=== PATIENT | female | born 1990 | race Caucasian/White ===

== ENCOUNTER 2017-07-07 12:37 | Emergency (ER) | payer MEDICAID ==
[~2017-07-07] VITALS: Ht 157.5 cm; Wt 63.0 kg
[2017-07-07] MEDS ORDERED: BACITRACIN ZINC OINT UDPKT TOP ONE (14:30)
[2017-07-07] MEDS ORDERED: TETANUS, DIPHTHERIA, PERTUSSIS VAC/PF 0.5ML (>7YR OLD) IM ONE (14:30)
[2017-07-07] MEDS ORDERED: IBUPROFEN 600MG TABLET PO ONE (14:30)
[2017-07-07] MEDS ORDERED: LIDOCAINE HCL 1% 20ML VIAL (Pyxis) INJ MC ONE (14:30)
[2017-07-07 14:34] VITALS: BP 123/87
== END 2017-07-07 16:11 | disposition home or self-care (01) ==
LOC: ER 13:01
DX: S71.132A Puncture wound without foreign body, left thigh, initial encounter (principal); W26.0XXA Contact with knife, initial encounter; Y93.89 Activity, other specified; Y92.89 Other specified places as the place of occurrence of the external cause; Z23 Encounter for immunization
CPT/HCPCS: 12001; 73552; 90471; 90715; 99284; J3490; Z7610

== ENCOUNTER 2018-03-09 17:16 | Emergency (ER) | payer MEDICAID ==
[~2018-03-09] VITALS: Ht 157.5 cm; Wt 69.0 kg
[2018-03-09] MEDS ORDERED: SODIUM CHLORIDE 0.9% 1,000 ML IV ONE ×2 (20:01→21:55)
[2018-03-09] MEDS ORDERED: ONDANSETRON HCL 4MG/2ML INJ IV ONE (20:15)
[2018-03-09] MEDS ORDERED: ACETAMINOPHEN 325MG TABLET PO PRN (20:15)
[2018-03-09 20:32] LABS: BASOPHILS % 0.6 % (0.0-2.0); HEMATOCRIT. 39.6 % (36.0-48.0); HEMOGLOBIN. 13.5 g/dL (12.0-16.0); MEAN CORPUSCULAR HEMOGLOBIN 30.2 pg (28.0-32.0); MEAN CORPUSCULAR VOLUME 88.6 fL (81.0-99.0); MEAN PLATELET VOLUME 9.4 fl (7.4-10.4); MONOCYTES % 12.6 % (2.0-8.0); NEUTROPHILS % 55.8 % (40.0-76.0); PLATELET 231 x1000/uL (130-400); RED BLOOD CELL COUNT 4.47 mill/uL (4.2-5.4); RED CELL DISTRIBUTION WIDTH 12.6 % (11.6-14.6)
[2018-03-09 20:34] LABS: CHLORIDE 105 mEq/L (98-107)
[2018-03-09 20:57] LABS: B-HCG QUANTITATIVE 69658 mIU/mL (<3)
[2018-03-09 21:15] LABS: CLARITY URINE CLOUDY (CLEAR); COLOR URINE YELLOW (YELLOW); KETONES URINE NEGATIVE (NEGATIVE); LEUKOCYTE ESTERASE URINE TRACE (NEGATIVE); NITRITE URINE NEGATIVE (NEGATIVE); OCCULT BLOOD URINE NEGATIVE (NEGATIVE); PROTEIN URINE NEGATIVE (NEGATIVE); SPECIFIC GRAVITY URINE 1.021 (1.005-1.030)
[2018-03-09 23:08] VITALS: BP 102/68
== END 2018-03-09 23:11 | disposition home or self-care (01) ==
LOC: ER 17:16
DX: O23.41 Unspecified infection of urinary tract in pregnancy, first trimester (principal); O26.891 Other specified pregnancy related conditions, first trimester; R42 Dizziness and giddiness; R53.1 Weakness; Z3A.01 Less than 8 weeks gestation of pregnancy
CPT/HCPCS: 36415; 76801; 76817; 80053; 81003; 81025; 84702; 85025; 96361; 96374; 99285; J2405; J7030; Z7610

== ENCOUNTER 2018-10-10 10:54 | Observation (INO) | payer MEDICAID ==
[2018-10-10] MEDS ORDERED: PNV1TABL50 MT (15:16)
== END 2018-10-10 15:25 | disposition home or self-care (01) ==
LOC: UNDOADMOB 10:54 → 8 EST LDRP 10:54
PROVIDERS: ADMIT Specialist; ATTEND Specialist
DX: O26.893 Other specified pregnancy related conditions, third trimester (principal); R10.11 Right upper quadrant pain; M54.9 Dorsalgia, unspecified; Z87.19 Personal history of other diseases of the digestive system; Z3A.37 37 weeks gestation of pregnancy
CPT/HCPCS: 76705; 76805; 76818; 99281; G0378

== ENCOUNTER 2018-10-10 15:45 | Emergency (ER) | payer MEDICAID ==
[~2018-10-10 15:45] MED LIST: PNV1TABL50 MT
== END 2018-10-10 17:09 | disposition left against medical advice (07) ==
LOC: ER 15:45
DX: K80.00 Calculus of gallbladder with acute cholecystitis without obstruction (principal); Z53.21 Procedure and treatment not carried out due to patient leaving prior to being seen by health care provider

== ENCOUNTER 2018-10-10 20:22 | Observation (INO) | payer MEDICAID ==
[~2018-10-10] VITALS: Ht 154.9 cm; Wt 82.6 kg
== END 2018-10-10 21:45 | disposition home or self-care (01) ==
LOC: 8 EST LDRP 20:22
PROVIDERS: ADMIT Specialist; ATTEND Specialist
DX: O26.893 Other specified pregnancy related conditions, third trimester (principal); R10.11 Right upper quadrant pain; M54.9 Dorsalgia, unspecified; Z87.19 Personal history of other diseases of the digestive system; Z3A.37 37 weeks gestation of pregnancy
CPT/HCPCS: G0378

== ENCOUNTER 2018-10-10 21:55 | Emergency (ER) | payer MEDICAID | END 2018-10-10 23:28 | disposition left against medical advice (07) | LOC: ER 21:55 | DX: M54.9 Dorsalgia, unspecified (principal); Z53.21 Procedure and treatment not carried out due to patient leaving prior to being seen by health care provider ==

== ENCOUNTER 2018-10-12 00:52 | Observation (INO) | payer MEDICAID | END 2018-10-12 02:20 | disposition home or self-care (01) | LOC: 8 EST LDRP 00:52 | PROVIDERS: ADMIT Specialist; ATTEND Specialist | DX: O62.9 Abnormality of forces of labor, unspecified (principal); Z3A.37 37 weeks gestation of pregnancy | CPT/HCPCS: 99281; G0378 ==

== ENCOUNTER 2019-08-02 11:19 | Emergency (ER) | payer MEDICAID ==
[~2019-08-02] VITALS: Ht 157.5 cm; Wt 64.0 kg
[2019-08-02 12:38] LABS: CLARITY URINE CLOUDY (CLEAR); COLOR URINE YELLOW (YELLOW); KETONES URINE NEGATIVE (NEGATIVE); LEUKOCYTE ESTERASE URINE NEGATIVE (NEGATIVE); NITRITE URINE NEGATIVE (NEGATIVE); OCCULT BLOOD URINE NEGATIVE (NEGATIVE); PROTEIN URINE NEGATIVE (NEGATIVE); SPECIFIC GRAVITY URINE 1.025 (1.005-1.030)
[2019-08-02 14:07] LABS: BASOPHILS % 0.7 % (0.0-2.0); EOSINOPHILS % 2.3 % (0.0-5.0); HEMATOCRIT. 39.6 % (36.0-48.0); HEMOGLOBIN. 13.4 g/dL (12.0-16.0); LYMPHOCYTES % 28.3 % (20.0-50.0); MEAN CORPUSCULAR HEMOGLOBIN 28.5 pg (28.0-32.0); MEAN CORPUSCULAR VOLUME 84.5 fL (81.0-99.0); MEAN PLATELET VOLUME 9.2 fl (7.4-10.4); MONOCYTES % 13.3 % (2.0-8.0); NEUTROPHILS % 55.4 % (40.0-76.0); PLATELET 248 x1000/uL (130-400); RED BLOOD CELL COUNT 4.69 mill/uL (4.2-5.4); RED CELL DISTRIBUTION WIDTH 13.6 % (11.6-14.6)
[2019-08-02 14:12] LABS: CHLORIDE 103 mEq/L (98-107)
[2019-08-02 14:38] LABS: B-HCG QUANTITATIVE 72537 mIU/mL (<3)
[2019-08-02 15:30] VITALS: BP 120/87
== END 2019-08-02 15:59 | disposition home or self-care (01) ==
LOC: ER 13:03
DX: O20.0 Threatened abortion (principal); Z3A.01 Less than 8 weeks gestation of pregnancy
CPT/HCPCS: 36415; 76801; 80053; 81003; 81025; 84702; 85025; 99284

== ENCOUNTER 2020-01-31 12:15 | Observation (INO) | payer MEDICAID ==
[~2020-01-31] VITALS: Ht 154.9 cm; Wt 82.1 kg
[2020-01-31] MEDS ORDERED: SODIUM CHLORIDE 0.9% 1,000 ML IV SCH (13:00)
[2020-01-31 13:01] LABS: CLARITY URINE CLOUDY (CLEAR); COLOR URINE YELLOW (YELLOW); KETONES URINE NEGATIVE (NEGATIVE); LEUKOCYTE ESTERASE URINE TRACE (NEGATIVE); NITRITE URINE NEGATIVE (NEGATIVE); OCCULT BLOOD URINE NEGATIVE (NEGATIVE); PH URINE 6.5 (4.5-8.0); PROTEIN URINE TRACE (NEGATIVE)
== END 2020-01-31 13:55 | disposition home or self-care (01) ==
LOC: 8 EST LDRP 12:15
PROVIDERS: ADMIT Specialist; ATTEND Specialist
DX: O26.893 Other specified pregnancy related conditions, third trimester (principal); R10.2 Pelvic and perineal pain; Z3A.35 35 weeks gestation of pregnancy
CPT/HCPCS: 59025; 81003; 96360; G0378; 99281

== ENCOUNTER 2020-03-08 17:26 | Inpatient (IN) | payer MEDICAID ==
[~2020-03-08] VITALS: Ht 154.9 cm; Wt 88.0 kg
[2020-03-08] MEDS: LACTATED RINGERS 1,000 ML IV SCH (21:30)
[2020-03-08] MEDS ORDERED: DEXT 5%/LR + PITOCIN 20UNITS/L 1,000 ML IV SCH (21:37)
[2020-03-08] MEDS ORDERED: CARBOPROST TROMETHAMINE 250 MCG/ML AMPUL IM PRN (21:45)
[2020-03-08] MEDS ORDERED: CITRIC ACID/SODIUM CITRATE SOLN 30ML UDC PO NR (21:45)
[2020-03-08] MEDS ORDERED: METHYLERGONOVINE MALEATE 0.2 MG/ML IM PRN (21:45)
[2020-03-08] MEDS ORDERED: NALOXONE HCL 0.4 MG/ML 1ML VIAL IM PRN (21:45)
[2020-03-08] MEDS ORDERED: FENTANYL CITRATE/PF 50MCG/ML 2ML VIAL ONE (21:56)
[2020-03-08] MEDS ORDERED: OXYTOCIN 10 UNITS/ML 1ML ONE (21:56)
[2020-03-08] MEDS ORDERED: ONDANSETRON HCL 4MG/2ML INJ ONE (21:56)
[2020-03-08] MEDS ORDERED: CEFAZOLIN SODIUM 1000MG/VIAL ONE (21:56)
[2020-03-08] MEDS ORDERED: EPHEDRINE SULFATE 50MG/ML VIAL ONE (21:56)
[2020-03-08] MEDS ORDERED: MORPHINE SULFATE/PF 1MG/ML 10ML AMP ONE (21:56)
[2020-03-08] MEDS ORDERED: PNEUMOCOCCAL 23-VAL P-SAC VAC 0.5 ML IM ONE (22:15)
[2020-03-08 22:47] LABS: HEMATOCRIT. 28.5 % (36.0-48.0); HEMOGLOBIN. 9.2 g/dL (12.0-16.0); MEAN CORPUSCULAR HEMOGLOBIN 23.2 pg (28.0-32.0); MEAN CORPUSCULAR VOLUME 71.8 fL (81.0-99.0); MEAN PLATELET VOLUME 9.2 fl (7.4-10.4); PLATELET 222 x1000/uL (130-400); RED BLOOD CELL COUNT 3.97 mill/uL (4.2-5.4)
[2020-03-08 22:58] LABS: INR 0.9; PARTIAL THROMBOPLASTIN TIME 21.5 sec (23.4-31.0); PROTHROMBIN TIME 9.8 sec (9.6-11.0)
[2020-03-08 23:09] LABS: PLATELET ESTIMATE NORMAL
[2020-03-08 23:24] LABS: HEPATITIS B SURFACE ANTIGEN NEGATIVE
[2020-03-09] MEDS: LACTATED RINGERS 1,000 ML IV SCH ×2 (04:33→15:21)
[2020-03-09] MEDS ORDERED: KETOROLAC 60MG/2ML VIAL IM ONE (05:29)
[2020-03-09] MEDS ORDERED: DIPHENHYDRAMINE 50MG/ML VIAL ONE (05:29)
[2020-03-09] MEDS ORDERED: NALOXONE HCL 0.4 MG/ML 1ML VIAL IV PRN (06:00)
[2020-03-09] MEDS ORDERED: BUTORPHANOL TARTRATE 2 MG/ML VIAL IV PRN (06:00)
[2020-03-09] MEDS ORDERED: DIPHENHYDRAMINE 50MG/ML VIAL IV PRN (06:00)
[2020-03-09] MEDS ORDERED: DEXT 5%/LR + PITOCIN 20UNITS/L 1,000 ML IV SCH (06:27)
[2020-03-09] MEDS ORDERED: BISACODYL 10MG SUPP PR PRN (06:30)
[2020-03-09] MEDS ORDERED: LANOLIN OINT 7GM TUBE TOP PRN (06:30)
[2020-03-09] MEDS ORDERED: HEMORRHOIDAL SUPP PR PRN (06:30)
[2020-03-09] MEDS ORDERED: IBUPROFEN 400MG TABLET PO PRN (06:30)
[2020-03-09] MEDS ORDERED: ONDANSETRON HCL 4MG/2ML INJ IV PRN (06:30)
[2020-03-09] MEDS ORDERED: HYDROCODONE/ACETAMINOPHEN 5/325MG TABLET PO PRN (06:30)
[2020-03-09 07:18] LABS: CLARITY URINE CLEAR (CLEAR); COLOR URINE YELLOW (YELLOW); KETONES URINE NEGATIVE (NEGATIVE); LEUKOCYTE ESTERASE URINE NEGATIVE (NEGATIVE); NITRITE URINE NEGATIVE (NEGATIVE); OCCULT BLOOD URINE NEGATIVE (NEGATIVE); PH URINE 7.5 (4.5-8.0); PROTEIN URINE NEGATIVE (NEGATIVE); SPECIFIC GRAVITY URINE 1.011 (1.005-1.030); UROBILINOGEN URINE 0.2 E.U./dL (0.2-1.0)
[2020-03-09 07:42] LABS: *AMPHETAMINES SCREEN URINE NEGATIVE (NEGATIVE); *BARBITURATES SCREEN URINE NEGATIVE (NEGATIVE); *BENZODIAZEPINES SCREEN URINE NEGATIVE (NEGATIVE); *COCAINE SCREEN URINE NEGATIVE (NEGATIVE); METHADONE URINE SCREEN NEGATIVE (NEGATIVE); OPIATES URINE SCREEN NEGATIVE (NEGATIVE)
[2020-03-09 07:43] LABS: CANNABINOID URINE SCREEN NEGATIVE (NEGATIVE); PHENCYCLIDINE URINE SCREEN NEGATIVE (NEGATIVE)
[2020-03-09 08:55] VITALS: BP 100/64
[2020-03-09 10:15] VITALS: BP 97/52
[2020-03-09 15:15] VITALS: BP 93/48
[2020-03-09] MEDS: KETOROLAC 30MG/ML VIAL IV SCH ×2 (15:19→23:00)
[2020-03-09] MEDS: MAGNESIUM/ALUMINUM HYDROXIDE/SIMETHICONE 30ML UDC PO SCH ×2 (17:25→22:01)
[2020-03-09] MEDS: SIMETHICONE 80MG TABLET CHEW PO SCH ×2 (17:26→22:01)
[2020-03-09 20:00] VITALS: BP 97/52
[2020-03-09] MEDS: DOCUSATE SODIUM 100MG CAPSULE PO SCH (22:00)
[2020-03-09] MEDS ORDERED: KETOROLAC 30MG/ML VIAL IV SCH (23:00)
[2020-03-10 00:05] VITALS: BP 90/50
[2020-03-10 05:00] VITALS: BP 96/62
[2020-03-10] MEDS: IBUPROFEN 800MG TABLET PO PRN ×3 (05:06→19:30)
[2020-03-10 06:19] LABS: HEMATOCRIT. 23.3 % (36.0-48.0); HEMOGLOBIN. 7.4 g/dL (12.0-16.0); MEAN CORPUSCULAR HEMOGLOBIN 22.8 pg (28.0-32.0); MEAN CORPUSCULAR VOLUME 71.3 fL (81.0-99.0); MEAN PLATELET VOLUME 9.1 fl (7.4-10.4); PLATELET 161 x1000/uL (130-400); RED BLOOD CELL COUNT 3.26 mill/uL (4.2-5.4); RED CELL DISTRIBUTION WIDTH 16.6 % (11.6-14.6)
[2020-03-10 08:00] VITALS: BP 90/67
[2020-03-10] MEDS: PRENATAL VIT/FE FUMARATE/FA TABLET PO SCH (09:58)
[2020-03-10] MEDS: FERROUS SULFATE 325MG TABLET PO SCH ×2 (09:58→19:29)
[2020-03-10] MEDS: SIMETHICONE 80MG TABLET CHEW PO SCH ×4 (09:59→21:00)
[2020-03-10] MEDS: MAGNESIUM/ALUMINUM HYDROXIDE/SIMETHICONE 30ML UDC PO SCH ×2 (10:26→22:00)
[2020-03-10 13:17] LABS: PLATELET ESTIMATE NORMAL
[2020-03-10 16:00] VITALS: BP 125/80
[2020-03-10 20:00] VITALS: BP 126/79
[2020-03-10] MEDS: DOCUSATE SODIUM 100MG CAPSULE PO SCH (22:00)
[2020-03-11 04:00] VITALS: BP 100/61
[2020-03-11] MEDS: IBUPROFEN 800MG TABLET PO PRN (04:27)
[2020-03-11] MEDS: MAGNESIUM/ALUMINUM HYDROXIDE/SIMETHICONE 30ML UDC PO SCH ×2 (07:30→09:14)
[2020-03-11] MEDS: FERROUS SULFATE 325MG TABLET PO SCH ×2 (07:30→09:14)
[2020-03-11] MEDS: SIMETHICONE 80MG TABLET CHEW PO SCH (08:00)
[2020-03-11] MEDS ORDERED: IBUP-2030 MT (08:15)
[2020-03-11] MEDS: PRENATAL VIT/FE FUMARATE/FA TABLET PO SCH ×2 (09:00→09:13)
== END 2020-03-11 12:41 | disposition home or self-care (01) | DRG 540 ==
LOC: OBSVTOIN 17:26 → 8 EST LDRP 17:26 → 8EST 03-09 08:48
PROVIDERS: ADMIT Obstetrics & Gynecology; ATTEND Obstetrics & Gynecology
PROC: 10D00Z1 Extraction of Products of Conception, Low, Open Approach (ICD-10-PCS; principal; 2020-03-09)
DX: O36.63X0 Maternal care for excessive fetal growth, third trimester, not applicable or unspecified (principal); O99.02 Anemia complicating childbirth; O32.0XX0 Maternal care for unstable lie, not applicable or unspecified; Z37.0 Single live birth; Z3A.40 40 weeks gestation of pregnancy; D50.0 Iron deficiency anemia secondary to blood loss (chronic)
CPT/HCPCS: 36415; 76805; 76818; 80305; 81003; 85025; 86592; 86703; 86762; 86850; 86900; 87340; 88307; 99281; G0378; J0690; J1200; J1885; J2274; J2405; J2590; J3010; J3490; J7120

== ENCOUNTER 2022-12-18 09:26 | Emergency (ER) | payer MEDICAID, OTHER ==
[~2022-12-18] VITALS: Ht 154.9 cm; Wt 65.8 kg
[~2022-12-18 09:26] MED LIST changes: +IBUP-2030 MT
[2022-12-18 09:37] VITALS: O2SAT 98
[2022-12-18] MEDS ORDERED: KETOROLAC 15MG/ML VIAL IV ONE (09:45)
[2022-12-18] MEDS ORDERED: MAGNESIUM/ALUMINUM HYDROXIDE/SIMETHICONE 30ML UDC PO ONE (09:45)
[2022-12-18] MEDS ORDERED: ONDANSETRON HCL 4MG/2ML INJ IV ONE (09:45)
[2022-12-18 09:55] LABS: BASOPHILS % 0.5 % (0.0-2.0); EOSINOPHILS % 1.5 % (0.0-5.0); HEMATOCRIT. 37.6 % (36.0-48.0); HEMOGLOBIN. 12.4 g/dL (12.0-16.0); MEAN CORPUSCULAR HEMOGLOBIN 25.4 pg (28.0-32.0); MEAN CORPUSCULAR VOLUME 77.1 fL (81.0-99.0); MEAN PLATELET VOLUME 9.3 fl (7.4-10.4); MONOCYTES % 10.7 % (2.0-8.0); NEUTROPHILS % 67.3 % (40.0-76.0); PLATELET 259 x1000/uL (130-400); RED BLOOD CELL COUNT 4.87 mill/uL (4.2-5.4); RED CELL DISTRIBUTION WIDTH 16.2 % (11.6-14.6)
[2022-12-18] MEDS ORDERED: SODIUM CHLORIDE 0.9% 1,000 ML IV SCH (10:00)
[2022-12-18 10:04] LABS: CHLORIDE 110 mEq/L (98-107)
[2022-12-18 10:06] LABS: HCG SCREEN NEGATIVE
[2022-12-18 12:06] LABS: CLARITY URINE CLOUDY (CLEAR); COLOR URINE YELLOW (YELLOW); KETONES URINE NEGATIVE (NEGATIVE); LEUKOCYTE ESTERASE URINE TRACE (NEGATIVE); NITRITE URINE POSITIVE (NEGATIVE); OCCULT BLOOD URINE NEGATIVE (NEGATIVE); PROTEIN URINE NEGATIVE (NEGATIVE); SPECIFIC GRAVITY URINE 1.012 (1.005-1.030)
[2022-12-18] MEDS ORDERED: IBUP-2029 MT (12:26)
[2022-12-18] MEDS ORDERED: ONDA4TAB50 MT (12:26)
[2022-12-18] MEDS ORDERED: KETOROLAC 15MG/ML VIAL IV NR (12:45)
[2022-12-18 13:54] VITALS: BP 116/68; PULSE 74; RESP 12; TEMP 98.5
== END 2022-12-18 13:58 | disposition home or self-care (01) ==
LOC: ER 09:26
DX: K80.20 Calculus of gallbladder without cholecystitis without obstruction (principal); Z00.00 Encounter for general adult medical examination without abnormal findings
CPT/HCPCS: 36415; 76705; 80053; 81003; 81025; 82248; 84703; 85025; 96361; 96374; 96375; 96376; 99285; J1885; J2405